=== PATIENT | female | born 1975 | race Caucasian/White ===

== ENCOUNTER 2021-11-22 08:55 | Emergency (ER) | payer SELFPAY ==
[~2021-11-22] VITALS: Ht 160 cm; Wt 63.5 kg
--- NOTE | 2021-11-22 09:01 | NUR ---
AGA 60 from [facility] ([facility] c/o drug overdose, pinpoint pupil per ems report, 1mg narcan given in the field. The patient is alert and oriented x3. Denies pain. In room air and denies SOB. Respiration regular and unlabored. The patient is attached to the monitor. Warm blanket provided for comfort. Will continue to monitor the patient.
--- NOTE | 2021-11-22 09:36 | NUR ---
THE PATIENT REFUSED BLOOD DRAW DESPITE EXPLAINING RISKS AND BENEFITS. DR HO MADE AWARE.
--- NOTE | 2021-11-22 10:28 | NUR ---
UNABLE TO PROVIDE URINE YET
--- NOTE | 2021-11-22 12:00 | NUR ---
THE PATIENT REFUSES TO GIVE URINE SAMPLE DESPITE EXPLAINING RISKS AND BENEFITS. DR HO MADE AWARE.
[2021-11-22] MEDS ORDERED: NALO4SPR BNOSTRILS (14:02)
--- NOTE | 2021-11-22 15:47 | NUR ---
Patient discharged in stable condition. Written and verbal after care instructions given. Patient verbalizes understanding of instruction but refused to sign discharge papers.
[2021-11-22 15:53] VITALS: BP 133/80
== END 2021-11-22 15:54 | disposition home or self-care (01) ==
LOC: ER 08:57
DX: T40.601A Poisoning by unspecified narcotics, accidental (unintentional), initial encounter (principal); F19.10 Other psychoactive substance abuse, uncomplicated; F17.200 Nicotine dependence, unspecified, uncomplicated; Z59.00 Homelessness unspecified; Y92.521 Bus station as the place of occurrence of the external cause